=== PATIENT | female | born 1970 | race Asian ===

== ENCOUNTER → 2018-03-21 | Outpatient (CLI) | payer BC, OTHER ==
[~2018-03-21] MED LIST: CALCIUM WITH VITAMIN D
== END | disposition home or self-care (01) ==
LOC: CFH 07:23
PROVIDERS: ATTEND Family Medicine
DX: Z12.31 Encounter for screening mammogram for malignant neoplasm of breast (principal)
CPT/HCPCS: 77063; 77067

== ENCOUNTER 2019-06-15 12:32 | Emergency (ER) | payer OTHER ==
[~2019-06-15] VITALS: Ht 157.5 cm; Wt 60.0 kg
[2019-06-15] MEDS ORDERED: SODIUM CHLORIDE FLUSH 10ML SYR IVF ONE (13:00)
[2019-06-15 13:19] LABS: MEAN CORPUSCULAR HEMOGLOBIN 17.8 pg (27.0-34.8); MEAN CORPUSCULAR VOLUME 61.5 fL (80-100); MEAN PLATELET VOLUME 7.6 fL (7.4-10.4); PLATELET COUNT 461 x10^3/uL (130-400); RED BLOOD COUNT 4.23 x10^6/uL (3.82-5.3); RED CELL DISTRIBUTION WIDTH 21.3 % (9.6-15.2)
--- NOTE | 2019-06-15 13:20 | NUR ---
Pt to room from [facility], ambulatory with steady gait.
[2019-06-15 13:21] LABS: ALANINE AMINOTRANSFERASE 21 U/L (12-78); ALBUMIN 3.5 g/dL (3.4-5.0); ANION GAP 8 mmol/L (5-15); CALCIUM 8.7 mg/dL (8.5-10.1); CHLORIDE 106 mmol/L (98-107); CREATININE 0.83 mg/dL (0.55-1.02)
[2019-06-15 13:23] LABS: ALKALINE PHOSPHATASE 52 U/L (45-117); BILIRUBIN,TOTAL 0.3 mg/dL (0.2-1.0); TOTAL PROTEIN 8.1 g/dL (6.4-8.2)
[2019-06-15 13:42] LABS: MD YES
--- NOTE | 2019-06-15 13:43 | NUR ---
task rn: piv established and labs drawn. clinical laboratory service teacher at to send labs. pt connected to all monitors. no needs expressed. awaiting results.
[2019-06-15 13:46] LABS: ANISOCYTOSIS 1+; BASOS#(MANUAL) 0.06 x10^3/uL (0-0.1); BASOS% (MANUAL) 1 % (0-1); EOS#(MANUAL) 0.37 x10^3/uL (0.0-0.4); EOS% (MANUAL) 6 % (1-7); LYMPH#(MANUAL) 1.98 x10^3/uL (1-3.4); LYMPHS% (MANUAL) 32 % (22-44); MONOS#(MANUAL) 0.68 x10^3/uL (0.3-2.7); MONOS% (MANUAL) 11 % (2-9); NRBC % (MANUAL) 1 % (0-1); SEGS% (MANUAL) 50 % (42-75)
[2019-06-15 13:47] LABS: HYPOCHROMIA 2+; OVALOCYTES 1+; TARGET CELLS 1+
[2019-06-15 13:48] LABS: <PLATELET ESTIMATE> INCREASED; POLYCHROMASIA 1+; TEAR DROPS 1+
[2019-06-15 13:49] LABS: <PLT MORPHOLOGY> NORMAL PLT MORPH
--- NOTE | 2019-06-15 13:51 | NUR ---
pt to ed for "blood count." referred from pcp. pt connected to [facility]. s. Dr. Hein to bs for assessment. no transfusion at this time. awaiting further orders.
--- NOTE | 2019-06-15 14:42 | NUR ---
FIRST CONTACT. RN MEJIA IS ASSISTING THE PRIMARY CARE RN WITH THE PT.'S DISCHARGE. PT. WAS GIVEN DISCHARGE INSTRUCTIONS AND A SCRIPT. UNDERSTANDING VERBALIZED ALONG WITH WILLINGNESS TO COMPLY. PT.'S IV WAS DCD', CATH TIP INTACT. PRESSURE HELD AND HEMOSTASIS ACHIEVED. PT. WAS AMBULATORY TO THE DISCHARGE DESK. VSS.
[2019-06-15 14:44] VITALS: BP 141/96
== END 2019-06-15 14:47 ==
LOC: ED 14:41
DX: D50.0 Iron deficiency anemia secondary to blood loss (chronic) (principal); J45.909 Unspecified asthma, uncomplicated; I10 Essential (primary) hypertension; R42 Dizziness and giddiness
CPT/HCPCS: 36415; 80053; 82728; 83540; 83550; 85025; 86850; 86900; 99283

== ENCOUNTER → 2019-06-30 | Outpatient (CLI) | payer OTHER | END | disposition home or self-care (01) | LOC: CFH 07:04 | PROVIDERS: ATTEND Family Medicine | DX: Z12.31 Encounter for screening mammogram for malignant neoplasm of breast (principal) | CPT/HCPCS: 77063; 77067 ==